=== PATIENT | male | born 1955 | race Two or more races ===

== ENCOUNTER 2020-05-28 13:58 | Outpatient (CLI) | payer OTHER | END 2020-05-28 14:02 | disposition home or self-care (01) | LOC: SONOGRAMA 13:58 → MAMO-SONO 14:15 | PROVIDERS: ATTEND Urology | DX: R31.1 Benign essential microscopic hematuria (principal) ==

== ENCOUNTER 2020-11-16 08:51 | Outpatient (CLI) | payer OTHER | END 2020-11-16 09:02 | disposition home or self-care (01) | LOC: TOM 08:51 | PROVIDERS: ATTEND Urology | DX: C61 Malignant neoplasm of prostate (principal); N40.0 Benign prostatic hyperplasia without lower urinary tract symptoms; N31.0 Uninhibited neuropathic bladder, not elsewhere classified | CPT/HCPCS: 74177; Q9965 ==

== ENCOUNTER 2021-12-19 09:31 | Outpatient (CLI) | payer OTHER | END 2021-12-19 09:36 | disposition home or self-care (01) | LOC: SONOGRAMA 09:31 | PROVIDERS: ATTEND Urology | DX: N40.0 Benign prostatic hyperplasia without lower urinary tract symptoms (principal); R31.0 Gross hematuria; C61 Malignant neoplasm of prostate ==

== ENCOUNTER 2023-01-01 09:39 | Outpatient (CLI) | payer OTHER | END 2023-01-01 09:44 | disposition home or self-care (01) | LOC: SONOGRAMA 09:39 | PROVIDERS: ATTEND Urology | DX: N40.0 Benign prostatic hyperplasia without lower urinary tract symptoms (principal); R31.0 Gross hematuria; C61 Malignant neoplasm of prostate; R33.9 Retention of urine, unspecified ==

== ENCOUNTER 2023-03-22 13:42 | Outpatient (CLI) | payer OTHER | END 2023-03-22 13:49 | disposition home or self-care (01) | LOC: SONOGRAMA 13:42 | DX: E04.1 Nontoxic single thyroid nodule (principal) ==

== ENCOUNTER 2024-08-08 06:24 | Outpatient (CLI) | payer OTHER ==
[2024-08-08 07:00] LABS: HEMATOCRIT 38.5 % (39.0-48.0); HEMOGLOBIN 12.9 g/dL (13-16.00); MEAN CELL VOLUME 89.7 fL (80.0-100.00); MEAN CORPUSCULAR HEMOGLOBIN 30.1 pg (27.00-32.0); MEAN CORPUSCULAR HGB CONC 33.5 g/dl (32.0-36.0); PLATELET COUNT 286 K/uL (150-450); RED BLOOD COUNT 4.29 M/uL (4.00-6.00); RED CELL DISTRIBUTION WIDTH 13.8 % (11.5-14.5)
[2024-08-08 07:07] LABS: PH,URINE 5.5 (5.0-8.0); URINE APPEARANCE Clear; URINE BILIRRUBIN Negative (NEGATIVE); URINE BLOOD Negative; URINE COLOR Yellow; URINE GLUCOSE Negative (NEGATIVE); URINE KETONE Negative (NEGATIVE); URINE LEUKOCYTE Negative; URINE NITRATE Negative; URINE PROTEIN Negative (NEGATIVE); URINE UROBILINOGEN 0.2 E.U./dl
[2024-08-08 07:11] LABS: URINE BACTERIA 13.4 uL (0.0-1933); URINE EPITHELIAL CELLS 1.8 uL (0.0-38.8); URINE RBC 3.3 uL (0.0-20.8)
[2024-08-08 07:12] LABS: URINE CAST 0.14 uL (0.0-1.40); URINE WBC 1.5 uL (0.0-23.2)
[2024-08-08 08:17] LABS: ALBUMIN 3.9 gm/dL (3.4-5.0); CREATININE SERUM 1.81 mg/dL (0.70-1.30); GFR 37.47; PHOSPHOROUS 2.7 mg/dL (2.5-4.9); POTASSIUM 4.67 mEq/L (3.5-5.1)
[2024-08-14 06:04] LABS: a:g ratio 1.1 (0.7-1.7); alpha 1 g 0.3 g/dL (0.0-0.4); alpha 2 0.6 g/dL (0.4-1.0); beta g 1.3 g/dL (0.7-1.3); gamma g 1.3 g/dL (0.4-1.8); globulin t 3.5 g/dL (2.2-3.9); prot total 7.2 g/dL (6.0-8.5)
== END 2024-08-08 06:30 | disposition home or self-care (01) ==
LOC: LAB 06:24
DX: N18.32 Chronic kidney disease, stage 3b (principal); I10 Essential (primary) hypertension; R80.9 Proteinuria, unspecified

== ENCOUNTER 2024-08-08 07:13 | Outpatient (CLI) | payer OTHER | END 2024-08-08 07:24 | disposition home or self-care (01) | LOC: SONOGRAMA 07:13 | DX: R31.9 Hematuria, unspecified (principal); R35.1 Nocturia ==

== ENCOUNTER 2024-10-13 08:42 | Outpatient (CLI) | payer OTHER | END 2024-10-13 08:46 | disposition home or self-care (01) | LOC: SONOGRAMA 08:42 | PROVIDERS: ATTEND Internal Medicine Endocrinology, Diabetes & Metabolism | DX: E04.1 Nontoxic single thyroid nodule (principal) ==

== ENCOUNTER 2025-01-20 09:21 | Outpatient (CLI) | payer OTHER ==
[2025-01-20 11:17] LABS: URINE APPEARANCE Clear; URINE BILIRRUBIN Negative (NEGATIVE); URINE BLOOD Negative; URINE COLOR Yellow; URINE KETONE Negative (NEGATIVE); URINE LEUKOCYTE Negative; URINE NITRATE Negative; URINE PROTEIN Negative (NEGATIVE); URINE UROBILINOGEN 0.2 E.U./dl
[2025-01-20 11:19] LABS: URINE RBC 5.8 uL (0.0-20.8); URINE WBC 2.3 uL (0.0-23.2)
[2025-01-20 11:26] LABS: URINE BACTERIA 3.6 uL (0.0-1933); URINE GLUCOSE >=1000 MG/DL (NEGATIVE)
== END 2025-01-20 09:22 | disposition home or self-care (01) ==
LOC: LAB 09:21
PROVIDERS: ATTEND Urology
DX: C61 Malignant neoplasm of prostate (principal); R31.1 Benign essential microscopic hematuria

== ENCOUNTER 2025-01-20 10:24 | Outpatient (CLI) | payer OTHER | END 2025-01-20 10:28 | disposition home or self-care (01) | LOC: SONOGRAMA 10:24 | PROVIDERS: ATTEND Urology | DX: R33.9 Retention of urine, unspecified (principal); R31.0 Gross hematuria; C61 Malignant neoplasm of prostate ==